=== PATIENT | female | born 2000 | race African-American/Black ===

== ENCOUNTER 2023-11-03 09:57 | Emergency (ER) | payer BC, SELFPAY ==
[2023-11-03 10:15] VITALS: BP 120/72
--- NOTE | 2023-11-03 10:57 | ED.GENMED ---
History of Present Illness
<Milagros Cantu PA-C - Last Filed: 11/03/23 12:17>
General
Chief Complaint: Musculo-Skeletal Complaint
Source: patient
Exam Limitations: none and developmental stage
Time Seen by Provider: 11/03/23 10:57
Nursing documentation reviewed up to this point in time: agreed with
Travel History
Have you had any contact with someone who has COVID-19?: No
Do you have any symptoms of coronavirus? Fever > 100 degrees, chills, cough, shortness of breath, sore throat, loss of taste or smell, muscle aches, or headache?: No
History of Present Illness
History of Present Illness:
This is a 23 y/o female with a past medical history of migraine disorder presenting to the ER today with bilateral shoulder pain and neck pain for the past 2 years. Patient does not recall what happened when the pain first started. She denies trauma
to the shoulder or neck. 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 At rest, her pain is a 2/10 and with movement it is a 5/10. She also reports that after that pain starts, she gets a headache and
this occurred daily. She also admits to shoulder popping. She has been evaluated by ERs and family doctor in the past where she got an x-ray and was told that she has tendinopathy. She has never seen an orthopedist. She states that ibuprofen only
mildly helps her pain.
Review of Systems
<Milagros Cantu PA-C - Last Filed: 11/03/23 12:17>
Review of Systems
All Other Systems: ROS reviewed and negative except as documented in HPI and ROS
Phy Exam
<Milagros Cantu PA-C - Last Filed: 11/03/23 12:17>
Physical Exam
Physical Exam:
Vitals: Vital signs are stable
General: Patient is well-appearing and is in no acute distress.
Skin: Warm and dry, no rashes or lesions.
Cardiac: Regular rate
Pulm: Normal respiratory effort
Musculoskeletal: Patient has full range of motion of b/l upper extremities and 5/5 strength. She has tenderness to palpation of the upper trapezius. There is palpable popping with shoulder movement.
Neuro: awake and alert, CN II-XII intact.
Course
<Milagros Cantu PA-C - Last Filed: 11/03/23 12:17>
Vital Signs
Initial and Last Documented VS:
Initial Vital Signs
Temp Pulse Resp BP Pulse Ox
98.4 F 61 18 120/72 99
11/03/23 10:15 11/03/23 10:15 11/03/23 10:15 11/03/23 10:15 11/03/23 10:15
Last Documented Vital Signs
Temp Pulse Resp BP Pulse Ox
98.4 F 61 18 120/72 99
11/03/23 10:15 11/03/23 10:15 11/03/23 10:15 11/03/23 10:15 11/03/23 10:15
<Robert Brown DO - Last Filed: 11/03/23 12:05>
Vital Signs
Initial and Last Documented VS:
Initial Vital Signs
Temp Pulse Resp BP Pulse Ox
98.4 F 61 18 120/72 99
11/03/23 10:15 11/03/23 10:15 11/03/23 10:15 11/03/23 10:15 11/03/23 10:15
Last Documented Vital Signs
Temp Pulse Resp BP Pulse Ox
98.4 F 61 18 120/72 99
11/03/23 10:15 11/03/23 10:15 11/03/23 10:15 11/03/23 10:15 11/03/23 10:15
<Milagros Cantu PA-C - Last Filed: 11/03/23 12:17>
MDM/Problems Addressed
Differential Diagnosis Includes:
ddx include tendinopathy, musculoskeletal sprain/strain, tension headache, rotator cuff sprain/strain, occipital neuralgia,
MDM/Problems Addressed:
shoulder pain
neck pain
Chronic conditions affecting care: Other (migraine disorder)
<Milagros Cantu PA-C - Last Filed: 11/03/23 12:17>
*Pulse Oximetry
Patient hypoxic: no
*Critical Care Note
Total Time (30-74mins, 75-104mins- exclusive of procedures): Not Applicable
Data Reviewed
Review of Other/Old Records Reveals: Records (no previous records in [facility] to review )
Further Testing Considered But Not Given:
considered x-ray however patient has had repeat x-rays in the past
<Milagros Cantu PA-C - Last Filed: 11/03/23 12:17>
Patient Management
Escalation/DeEscalation of care consider admission/obs:
This is a 23 y/o female with a past medical history of migraine disorder presenting to the ER today with bilateral shoulder pain and neck pain for the past 2 years. Patient does not recall what happened when the pain first started. She denies trauma
to the shoulder or neck. Patient was seen by an ER and her primary care provider before in the past, and was told she had tendinitis. She states that ibuprofen only mildly helps with her symptoms and does not always help. On exam, she is 5 out of
5 strength in bilateral upper extremities and full range of motion bilaterally. She has palpable popping and clicking with movement of the shoulder. Patient has never seen orthopedics before. Suspect she most likely has a tendinous injury. We
will have her follow-up with an orthopedist and have her continue to use ibuprofen/acetaminophen as needed for pain control. Patient stable for discharge
ED Attending Note
<Milagros Cantu PA-C - Last Filed: 11/03/23 12:17>
-
Portions of this chart may have been created with voice recognition software.� Occasional wrong word or��sound alike� substitutions may have occurred due to the inherent limitations of voice recognition software.
<Robert Brown DO - Last Filed: 11/03/23 12:05>
ED Attending Note
Patient seen and examined by attending physician: Yes
I performed the substantive portion of visit, reviewed & personally made and approve the management plan that is documented in note by myself or ILA.: Yes
ED Attending Note:
I have seen and evaluated the patient with a [id number] encounter. I have spoken to the advance practicer provider and involved in the medical history, the physical exam, medical decision making.
Evaluation and management service: agree unless noted differently below.
Results interpretation: agree unless noted differently below.
Focused HPI: 23-year-old female presenting with back and shoulder pain. She has been evaluated for this problem by her primary care doctor. She states she has had an outpatient x-ray and was told she 'has fluid in her shoulder'. She denies fevers
or trauma
Physical exam: Well-appearing nontoxic. Range of motion intact right shoulder but there is a palpable click when she rotates her shoulder. No skin changes in her back. Mild trapezial muscle spasm.
Medical Decision Making: Since patient has already had x-rays, we discussed outpatient follow-up with orthopedics. She feels comfortable with this plan
Discharge Plan
Departure
Patient Disposition: Home (Routine Discharge)
Date of Disposition: 11/03/23
Time of Disposition: 12:00
Patient with high blood pressure during this ER visit?: No
Condition: Good
Discharge Problem:
Neck and shoulder pain, Tension headache
Instructions: Tension Headache (DC), Shoulder Pain (DC), BLOOD PRESSURE
Referrals:
Kirby Mckeon MD [Active] - Call in 1-3 days for appt
Emily Barragan PA-C [Family Provider] -
Activity Restrictions/Additional Instructions:
Please call the attached number to schedule a number with the orthopedist.
Please follow up with your primary care provider.
You can take 400 mg of ibuprofen every 6-8 hours as needed for pain.
Please return to the emergency department for any concerns.
Interventions
Interventions:
*Risk Screen - Suicide Last Done: 11/03/23 11:25
*General Assessment Last Done: 11/03/23 11:23
*Neglect/Abuse Screening Last Done: 11/03/23 11:25
ED- Fall Risk Assessment Last Done: 11/03/23 11:23
*ED COVID-19 Vaccine History Last Done: 11/03/23 11:23
*Nursing Disposition Last Done: 11/03/23 12:11
ED-Musculoskeletal Assessment Last Done: 11/03/23 11:23
[2023-11-03 11:23] VITALS: BMI 39.8
--- NOTE | 2023-11-03 12:10 | EDRN ---
Reviewed discharge instructions with patient. Verbalized understanding. Ambulated with steady gait to the lobby.
== END 2023-11-03 12:11 | disposition home or self-care (01) ==
LOC: EMR 09:57
PROVIDERS: EMERGENCY PHYSICIAN Student in an Organized Health Care Education/Training Program; FAMILY PHYSICIAN Physician Assistant
DX: M54.2 Cervicalgia (principal); G44.209 Tension-type headache, unspecified, not intractable
CPT/HCPCS: 99282

== ENCOUNTER 2025-02-23 15:50 | Emergency (ER) | payer BC, SELFPAY ==
[2025-02-23 15:56] VITALS: BMI 39.8
[2025-02-23 15:57] VITALS: BP 133/84
[2025-02-23 16:34] VITALS: BP 119/84; BMI 38.8
--- NOTE | 2025-02-23 16:44 | ED.GENMED ---
History of Present Illness
General
Chief Complaint: Fever
Source: patient
Exam Limitations: none
Time Seen by Provider: 02/23/25 16:08
Nursing documentation reviewed up to this point in time: agreed with
History of Present Illness
History of Present Illness:
Patient states she developed diarrhea 1 weak ago x 24 hours Armando she noted fever, headache, fatigue. Those symptoms persisit SHe was seeh at yesterday. Tested neg for flu, covid, mono. Today she went to PCP. COncern by provider for
tachycardia(135), hypotension (88/76). Advised tocome to ED for eval. Reports temp max 100. No skin rash. Eating (soup) and drinking. Denies any abd, pain. Reports mid chest pain with palpation. No SOB or cough. Brought self to ED for eval.
Past History
Past History
ED Past Medical History: None
ED Past Surgical History: Brain (Chiari malformation surgery 2023) and Other (laser eye surgery)
Social History
Tobacco: Non-smoker
Alcohol: Occasional
Drug: Marijuana (occasional)
Review of Systems
Review of Systems
Allergies reviewed?: Yes
All Other Systems: ROS reviewed and negative except as documented in HPI and ROS
Constitutional: Reports fatigue
EENT: Reports no symptoms
Respiratory: Reports no symptoms
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
ABD/GI: Reports diarrhea (1 week ago for 24 hours)
: Reports no symptoms
Musculoskeletal: Reports no symptoms
Skin: Reports no symptoms
Neurological: Reports no symptoms
Psychiatric: Reports no symptoms
Phy Exam
General Physical Exam
General Presentation: well appearing and no apparent distress
General age: appears stated age
General Skin: warm and dry
General Habitus: normal
General Mental: alert
Cardiovascular Exam
Cardiovascular Exam: tachycardia
Pulmonary Exam
Pulmonary Exam: lungs clear and no respiratory distress
Gastrointestinal Exam
Gastrointestinal Exam: non tender, soft, no organomegaly, no pulsatile mass, non distended and no cva tenderness
Neurological Exam
Neurological Exam: alert, oriented x3, CN II-XII intact, no motor deficits and speech normal
Musculoskeletal Exam
Musculoskeletal Exam: full ROM and neuro vasc intact
Skin Exam
Skin Exam: normal color, warm/dry and no rash
Psychiatric Exam
Psychiatric Exam: normal mood/affect
Course
Orders/Labs/Results
Orders:
Orders
02/23/25 16:43
CR Chest - 2 Views Urgent
Comment:
Reason For Exam: pain
02/23/25 16:52
Complete Blood Count/With Diff Urgent
Comprehensive Metabolic Panel Urgent
Lipase Urgent
Urinalysis Reflex To Culture Urgent
Date Specimen was Collected: 02/23/25
Time Specimen was Collected: 16:41
Urine Microscopic Reflex Cult Urgent
02/23/25 17:08
0.9% Sodium Chloride 1000 ml [Nss] 1,000 ml IV BOLUS
02/23/25 18:05
US Abdomen Complete/Upper Urgent
Comment:
Reason For Exam: upper abd pain, fever
Abnormal Lab Results
02/23/25
16:52
Absolute Monos (auto) 1.3 H 10^3/uL
(0.1-0.6)
Monocytes % 15.0 H %
(1.7-9.3)
Glucose 111 H mg/dl
(70-99)
Total Protein 8.6 H g/dl
(6.3-8.2)
Lipase 501 H U/L
(23-300)
Urine Albumin (Reflex) 2+ A
(Neg - Trace)
02/23/25 16:52
02/23/25 16:52
Vital Signs
Initial and Last Documented VS:
Initial Vital Signs
Temp Pulse Resp Pulse Ox
99.2 F 118 18 99
02/23/25 15:54 02/23/25 15:54 02/23/25 15:54 02/23/25 15:54
Last Documented Vital Signs
Temp Pulse Resp BP Pulse Ox
99.2 F 118 18 98/81 100
02/23/25 15:54 02/23/25 15:54 02/23/25 15:54 02/23/25 19:26 02/23/25 19:45
*Radiology
Radiology exam reviewed: radiology read reviewed
*Pulse Oximetry
SaO2: 100
Oxygen Mode of Delivery: Room air
Patient hypoxic: no
*Critical Care Note
Total Time (30-74mins, 75-104mins- exclusive of procedures): Not Applicable
Update Note
Update Note:
Patient to ED from PCP for hypotension, tachycardia. Reports fever, fatigue x 1 week. Diarrhea on day one. Labs reviewed. Lipase of 500 noted. Mild upper abd. discomfort with deep palpation. US neg for acute findings. VSS, afebrile,
normotensive. Given 1L nss. HR now 90's. She remains awake and alert, nontoxic appearing. Will discharge home with PCP follow up. Most likely viral syndrome. Given instrutions on s/s to return to ED and she is agreeable to plan.
ED Attending Note
-
Portions of this chart may have been created with voice recognition software.� Occasional wrong word or��sound alike� substitutions may have occurred due to the inherent limitations of voice recognition software.
Discharge Plan
Departure
Patient Disposition: Home (Routine Discharge)
Date of Disposition: 02/23/25
Time of Disposition: 19:53
Patient with high blood pressure during this ER visit?: No
Condition: Good
Covid-19: Not Applicable
Discharge Problem:
Dehydration
Instructions: Dehydration in adults - ED discharge instructions
Referrals:
Andrew Sandoval MD [Family Provider, Family Practice] - Follow up in 2-3 days
Activity Restrictions/Additional Instructions:
Return to the emergency department immediately for any changes in/worsening of your symptoms
Interventions
Interventions:
*Risk Screen - Suicide Last Done: 02/23/25 15:58
*General Assessment Last Done: 02/23/25 15:58
*Neglect/Abuse Screening Last Done: 02/23/25 15:58
*ED- Fall Risk Assessment Last Done: 02/23/25 16:35
*ED COVID-19 Vaccine History Last Done: 02/23/25 16:35
ED- Neurological Assessment Last Done: 02/23/25 16:35
ED-Skin Assessment Last Done: 02/23/25 16:35
Discharge Date and Time
Print Language: CHINESE
[2025-02-23 17:02] LABS: % Basophils 1.1 % (0-2); % Eosinophils 0.6 % (0-6); % Immature Granulocytes 0.2 % (0-0.5); % Lymphocytes 24.7 % (20.5-51.1); % Neutrophils 58.4 % (42.2-75.2); Absolute Basophils 0.1 10^3/uL (0-0.2); Absolute Eosinophils 0.1 10^3/uL (0-0.7); Absolute Lymphocytes 2.1 10^3/uL (1.2-3.4); Absolute Monocytes 1.3 10^3/uL (0.1-0.6); Absolute Neutrophils 4.9 10^3/uL (1.4-6.5); Hematocrit 39.6 % (37.0-47.0); Hemoglobin 13.8 g/dL (12.0-16.0); Mean Corp Hgb Conc. 34.8 g/dL (33.0-37.0); Mean Corpuscular Hgb 28.9 pg (27.0-31.0); Mean Platelet Volume 9.5 fL (7.4-10.4); Nucleated Red Blood Cells % 0 %; Platelet Count 247 10^3/uL (130-400); Red Blood Cell Count 4.77 10^6/uL (4.20-5.40); Red Cell Dist. Width 12.8 % (11.5-14.5); White Blood Cell Count 8.4 10^3/uL (4.8-10.8)
[2025-02-23 17:03] LABS: Urine Albumin 2+ (Neg - Trace); Urine Bilirubin Negative (Negative); Urine Character Clear (Clear); Urine Color Yellow; Urine Glucose Negative (Negative); Urine Ketone Negative (Negative); Urine Leukocyte Negative (Negative); Urine Nitrite Negative (Negative); Urine Occult Blood Negative (Negative); Urine Urobilinogen 1+ (Neg - 1+); Urine pH 6.5 (5.0-9.0)
[2025-02-23] MEDS: NSS 1000 IV (17:10)
[2025-02-23 17:25] LABS: ALT (SGPT) 11 U/L (0-35); AST (SGOT) 17 U/L (14-36); Albumin 4.4 g/dl (3.5-5.0); Alkaline Phosphatase 54 U/L (38-126); Blood Urea Nitrogen 10 mg/dl (7-17); Calcium 9.8 mg/dl (8.4-10.2); Carbon Dioxide 26 mmol/L (22-30); Chloride 103 mmol/L (98-107); Estimated Creatinine Clearance 102 ml/min; Glucose 111 mg/dl (70-99); Lipase 501 U/L (23-300); Potassium 4.7 mmol/L (3.5-5.1); Sodium 137 mmol/L (135-145); Total Bilirubin 0.8 mg/dl (0.2-1.3); Total Protein 8.6 g/dl (6.3-8.2); eGFR > 60.00
[2025-02-23 17:56] LABS: Urine Red Blood Cell 0-2 /HPF (0-2); Urine Squamous Cell >30 /LPF (Few); Urine Urothelial Cell 0-2 /LPF (FEW)
[2025-02-23 17:57] LABS: Urine White Cell 0-2 /HPF (0-5)
[2025-02-23 19:26] VITALS: BP 98/81
== END 2025-02-23 20:26 | disposition home or self-care (01) ==
LOC: EMR 15:50
PROVIDERS: Nurse Practitioner; EMERGENCY PHYSICIAN Emergency Medicine; FAMILY PHYSICIAN Family Medicine
DX: E86.0 Dehydration (principal); R50.9 Fever, unspecified; R19.7 Diarrhea, unspecified
CPT/HCPCS: 99284; 96360; 71046; 76700; 80053; 81003; 81015; 83690; 85025

== ENCOUNTER 2025-03-08 15:05 | Emergency (ER) | payer BC, SELFPAY ==
[2025-03-08 15:09] VITALS: BP 119/76
[2025-03-08 16:02] VITALS: BMI 39.3
--- NOTE | 2025-03-08 16:12 | ED.GENMED ---
History of Present Illness
General
Chief Complaint: Abdominal Pain
Source: patient
Exam Limitations: none
Time Seen by Provider: 03/08/25 16:03
Nursing documentation reviewed up to this point in time: agreed with
History of Present Illness
History of Present Illness:
The patient is a 24-year-old female who presents with complaints of abdominal pain, generalized but worse mid to upper abdomen. Seen here for similar symptoms 02/23 but now spreading or LUQ. The pain initially presented on May 26, for which
ultrasound and X-ray were performed, no acute findings, Lipase was elevated, 501 and the patient was diagnosed with dehydration and treated with intravenous fluids. Followed up with PCP and Lipase 178 five days ago. She was instructed to go back to
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 Here pain has worsened and she vomited once 3 days ago (none since) she did not want to wait for out pt CT scan.
She reports having had similar pain during the initial visit on the , but without movement to the left side at that time. She also experiences nausea but denies any current fever, diarrhea, constipation, urinary burning, frequency, or
urgency. Her doctor has instructed her to have a computed tomography scan scheduled for tomorrow, to be followed by a same-day doctor�s visit.
Past History
Past History
ED Past Medical History: Asthma
ED Past Surgical History: Brain (Chiari malformation surgery 2023) and Other (laser eye surgery)
Social History
Tobacco: Non-smoker
Alcohol: Occasional
Drug: Marijuana (occasional)
Personal: Single
Living: with family
Employment: Employed
Review of Systems
Review of Systems
Allergies reviewed?: Yes
All Other Systems: ROS reviewed and negative except as documented in HPI and ROS
Constitutional: Denies fever
Respiratory: Denies trouble breathing
Cardiac: Denies chest pain
ABD/GI: Reports abdominal pain and nausea; Denies vomiting, diarrhea, constipated, bloody stools or black stools
: Denies dysuria, frequency or difficulty voiding
Musculoskeletal: Reports no symptoms
Skin: Reports no symptoms
Neurological: Reports no symptoms
Phy Exam
Physical Exam
Physical Exam:
GENERAL: No acute distress. A&Ox3.
CONSTITUTIONAL: Afebrile.
EYES: clear, conjunctivae normal
ENMT: moist mucus membranes, Pharynx nl
RESPIRATORY: Regular respirations, nonlabored, lungs clear.
CARDIOVASCULAR: Regular rate and rhythm, no murmurs, no rubs.
GI: Soft, tender to palpate all areas of the abdomen. No guarding. Normal BS
MUSCULOSKELETAL: Moves with ease. Well perfused.
SKIN: Warm, dry, pink
PSYCH: Normal mood and affect. Well kept, interactive and appropriate
NEUROLOGIC: Awake, alert and oriented. No focal neurological deficits
Course
Orders/Labs/Results
Orders:
Orders
03/08/25 15:19
Test Result ONCE
03/08/25 16:04
HCG, Urine Qualitative Screen Urgent
Date Specimen was Collected: 03/08/25
Time Specimen was Collected: 15:19
Urinalysis Reflex To Culture Urgent
Date Specimen was Collected: 03/08/25
Time Specimen was Collected: 15:17
Urine Microscopic Reflex Cult Urgent
Urine Culture Urgent
COLT Source: U
Specimen Description:
Date Specimen was Collected: 03/08/25
Time Specimen was Collected: 15:17
03/08/25 16:15
Complete Blood Count/With Diff Urgent
Comprehensive Metabolic Panel Urgent
Lipase Urgent
03/08/25 16:59
CT Abd/pelvis W Iv Cont Urgent
Comment:
Reason For Exam: abd pain
Abnormal Lab Results
03/08/25 03/08/25
16:04 16:15
Absolute Monos (auto) 0.7 H 10^3/uL
(0.1-0.6)
Monocytes % 9.9 H %
(1.7-9.3)
BUN 5 L mg/dl
(7-17)
Glucose 100 H mg/dl
(70-99)
Total Protein 8.8 H g/dl
(6.3-8.2)
Lipase 477 H U/L
(23-300)
Urine Ketones 2+ A
(Negative)
Urine Bacteria (Reflex) Moderate A
(Negative)
Urine Albumin (Reflex) 1+ A
(Neg - Trace)
03/08/25 16:15
03/08/25 16:15
Vital Signs
Initial and Last Documented VS:
Initial Vital Signs
Temp Pulse Resp BP Pulse Ox
98.7 F 118 18 119/76 98
03/08/25 15:03/08/25 15:03/08/25 15:03/08/25 15:09 03/08/25 15:09
Last Documented Vital Signs
Temp Pulse Resp BP Pulse Ox
98.7 F 118 18 119/76 98
03/08/25 15:03/08/25 15:09 03/08/25 15:03/08/25 15:09 03/08/25 16:20
MDM/Problems Addressed
Differential Diagnosis Includes:
Gastritis, peptic ulcer, pancreatitis, hepatitis, appendicitis, GERD, biliary colic
MDM/Problems Addressed:
The patient is a 24-year-old female who presents with complaints of abdominal pain, generalized but worse mid to upper abdomen. Seen here for similar symptoms 02/23 but now spreading or LUQ. The pain initially presented on May 26, for which
ultrasound and X-ray were performed, no acute findings, Lipase was elevated, 501 and the patient was diagnosed with dehydration and treated with intravenous fluids. Followed up with PCP and Lipase 178 five days ago. She was instructed to go back to
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 Here pain has worsened and she vomited once 3 days ago (none since) she did not want to wait for out pt CT scan.
She reports having had similar pain during the initial visit on the , but without movement to the left side at that time. She also experiences nausea but denies any current fever, diarrhea, constipation, urinary burning, frequency, or
urgency. Her doctor has instructed her to have a computed tomography scan scheduled for tomorrow, to be followed by a same-day doctor�s visit.
Afebrile, NAD
6:15 PM:
CBC normal
CMP normal
Lipase 477
hCG negative
7:45 PM:
U/A neg
CT abdomen pelvis with IV contrast radiology report read: No CT evidence for an acute process in the abdomen or pelvis.
Increase in lipase for no reason elevated nausea vomiting
*Pulse Oximetry
SaO2: 98
Oxygen Mode of Delivery: Room air
Patient hypoxic: not evaluated
*Critical Care Note
Total Time (30-74mins, 75-104mins- exclusive of procedures): Not Applicable
ED Attending Note
-
Portions of this chart may have been created with voice recognition software.� Occasional wrong word or��sound alike� substitutions may have occurred due to the inherent limitations of voice recognition software.
Discharge Plan
Departure
Patient Disposition: Home (Routine Discharge)
Date of Disposition: 03/08/25
Time of Disposition: 19:50
Patient with high blood pressure during this ER visit?: No
Condition: Good
Discharge Problem:
Elevated lipase
Referrals:
Kareem Guzman MD [Active, Gastroenterology] - Next open appointment
Andrew Sandoval MD [Family Provider, Family Practice] - Keep scheduled appt
Activity Restrictions/Additional Instructions:
As we discussed, your lipase remains mildly elevated, this does not seem to be worrisome as your workup here shows nothing concerning
Follow-up with your family doctor as scheduled, take copies of all results with you
Drink plenty of fluids
Interventions
Interventions:
*Risk Screen - Suicide Last Done: 03/08/25 15:09
*General Assessment Last Done: 03/08/25 15:09
*Neglect/Abuse Screening Last Done: 03/08/25 16:14
*ED- Fall Risk Assessment Last Done: 03/08/25 16:02
*ED COVID-19 Vaccine History Last Done: 03/08/25 16:02
KM-Tcxsfw-Wjluzhfvwu Assessment Last Done: 03/08/25 16:02
Discharge Date and Time
Print Language: ECUADOREAN
[2025-03-08 16:21] LABS: Hematocrit 37.6 % (37.0-47.0); Hemoglobin 13.0 g/dL (12.0-16.0); Mean Corp Hgb Conc. 34.6 g/dL (33.0-37.0); Mean Corpuscular Volume 84.3 fL (81.0-99.0); Nucleated Red Blood Cells % 0 %; Platelet Count 277 10^3/uL (130-400); Red Cell Dist. Width 12.9 % (11.5-14.5)
[2025-03-08 16:41] LABS: ALT (SGPT) 11 U/L (0-35); AST (SGOT) 20 U/L (14-36); Albumin 4.6 g/dl (3.5-5.0); Alkaline Phosphatase 64 U/L (38-126); Blood Urea Nitrogen 5 mg/dl (7-17); Calcium 9.8 mg/dl (8.4-10.2); Carbon Dioxide 23 mmol/L (22-30); Chloride 107 mmol/L (98-107); Estimated Creatinine Clearance > 125 ml/min; Glucose 100 mg/dl (70-99); Lipase 477 U/L (23-300); Potassium 4.1 mmol/L (3.5-5.1); Sodium 137 mmol/L (135-145); Total Protein 8.8 g/dl (6.3-8.2); eGFR > 60.00
[2025-03-08 18:02] LABS: HCG, Urine Qualitative Screen Negative
[2025-03-08 18:18] LABS: Urine Character Clear (Clear)
[2025-03-08 18:37] LABS: Urine Squamous Cell 26-30 /LPF (Few); Urine Urothelial Cell 0-2 /LPF (FEW)
[2025-03-08 18:39] LABS: Urine Red Blood Cell 0-2 /HPF (0-2)
[2025-03-08 20:14] VITALS: BP 123/81
--- NOTE | 2025-03-08 20:15 | EDRN ---
Went over paperwork with patient and follow up instructions, rizwan Duran LEARNING AND DEVELOPMENT ADMINISTRATOR also went back in to go over results and plan for discharge with patient, gave patient CT results as well as her blood work and a follow up number for GI.
== END 2025-03-08 20:18 | disposition home or self-care (01) ==
LOC: EMR 15:05
PROVIDERS: Physician Assistant; Registered Nurse; EMERGENCY PHYSICIAN Student in an Organized Health Care Education/Training Program; FAMILY PHYSICIAN Family Medicine
DX: R74.8 Abnormal levels of other serum enzymes (principal); R10.84 Generalized abdominal pain; J45.909 Unspecified asthma, uncomplicated
CPT/HCPCS: 99284; 74177; 80053; 81003; 81015; 81025; 83690; 85025; 87086; Q9967